=== PATIENT | male | born 1965 | race Caucasian/White ===

== ENCOUNTER 2017-03-05 13:19 | Inpatient (IN) | payer MEDICARE ==
[~2017-03-05] VITALS: Ht 175.3 cm; Wt 77.6 kg
[2017-03-05] MEDS ORDERED: NORCO (13:28)
[2017-03-05] MEDS ORDERED: SOMA (13:28)
[2017-03-05] MEDS ORDERED: LORAZEPAM 2 MG/1 ML VIAL IV ONE (13:30)
[2017-03-05] MEDS ORDERED: IV NORMAL SALINE 1000 ML BAG IV ONE (13:30)
[2017-03-05] MEDS ORDERED: LORAZEPAM 2 MG/1 ML VIAL ONE (13:40)
[2017-03-05 13:57] LABS: BASOPHILS % (AUTO) 0.2 % (0.0-2.0); EOSINOPHILS # (AUTO) 0.2 K/uL (0.0-0.7); EOSINOPHILS % (AUTO) 2.3 % (0.0-7.0); HEMATOCRIT 37.3 % (36.7-47.1); HEMOGLOBIN 12.6 g/dL (12.5-16.3); LYMPHOCYTES # (AUTO) 1.5 K/uL (20.0-40.0); LYMPHOCYTES % (AUTO) 19.4 % (20.5-51.5); MEAN CORPUSCULAR HEMOGLOBIN 28.7 uug (23.8-33.4); MEAN CORPUSCULAR HGB CONC 34 g/dL (32.5-36.3); MEAN CORPUSCULAR VOLUME 84.5 fL (73.0-96.2); MONOCYTES # (AUTO) 0.7 K/uL (2.0-10.0); MONOCYTES % (AUTO) 9.3 % (0.0-11.0); NEUTROPHILS # (AUTO) 5.6 K/uL (1.8-8.9); NEUTROPHILS % (AUTO) 68.8 % (38.5-71.5); PLATELET COUNT (AUTO) 286 K/uL (152-348); RED BLOOD CELL COUNT(AUTO) 4.41 MIL/uL (4.06-5.63); RED CELL DISTRIBUTION WIDTH 13.8 % (12.1-16.2)
[2017-03-05 14:22] LABS: MAGNESIUM 1.6 mg/dL (1.8-2.4)
[2017-03-05 14:23] LABS: ALANINE AMINOTRANSFERASE 23 U/L (16-63); ALBUMIN 3.9 g/dL (3.4-5.0); ALKALINE PHOSPHATASE 53 U/L (50-136); ASPARTATE AMINOTRANSFERASE 24 U/L (15-37); BILIRUBIN,DIRECT 0.1 mg/dL (0.0-0.2); BILIRUBIN,TOTAL 0.4 mg/dL (0.2-1.0); CARBON DIOXIDE 23 mmol/L (21-32); CHLORIDE 93 mmol/L (98-107); CREATININE 0.8 mg/dL (0.6-1.3); GFR 102 mL/min (>60); GLUCOSE 98 mg/dL (74-106); POTASSIUM 4.1 mmol/L (3.5-5.1); SODIUM SERUM 130 mmol/L (136-145); TOTAL PROTEIN, SERUM 7.7 g/dL (6.4-8.2); UREA NITROGEN, BLOOD 8 mg/dL (7-18)
[2017-03-05 14:26] LABS: ACETAMINOPHEN < 2.0 ug/mL (10-30)
[2017-03-05] MEDS ORDERED: MAGNESIUM SULFATE/D5W 100 ML IV SCH (14:45)
[2017-03-05] MEDS ORDERED: MAGNESIUM SULFATE/D5W 200 ML ONE (14:48)
[2017-03-05] MEDS ORDERED: HYDROCODONE/APAP 5-325MG TABLET PO PRN (15:00)
[2017-03-05] MEDS ORDERED: ACETAMINOPHEN 325 MG TABLET PO PRN (15:00)
[2017-03-05] MEDS ORDERED: MAGNESIUM HYDROXIDE 30 ML LIQUID UDC PO PRN (15:00)
[2017-03-05 15:06] LABS: ETHANOL 46 MG/DL (0-0)
[2017-03-05] MEDS ORDERED: HYDROMORPHONE 1 MG/1 ML DISP.SYRIN IV PRN (15:30)
[2017-03-05] MEDS ORDERED: CLONIDINE HCL 0.1 MG TABLET PO PRN (15:45)
[2017-03-05 16:34] VITALS: BP 151/106
[2017-03-05] MEDS: FOLIC ACID 1 MG TABLET PO SCH (16:39)
[2017-03-05] MEDS: THIAMINE HCL 100 MG TABLET PO SCH (16:39)
[2017-03-05] MEDS: AMLODIPINE 5 MG TABLET PO SCH (16:40)
[2017-03-05] MEDS: MULTIVITAMINS,THERAPEUTIC TABLET PO SCH (16:40)
[2017-03-05] MEDS: ONDANSETRON 4 MG/2 ML VIAL IV PRN (16:53)
[2017-03-05 18:40] LABS: CALCIUM 8.5 mg/dL (8.5-10.1); CREATININE 0.8 mg/dL (0.6-1.3); MAGNESIUM 2.2 mg/dL (1.8-2.4)
[2017-03-05 19:00] VITALS: BP 125/91
[2017-03-05] MEDS: IV NS 1000 ML 1,000 ML IV PRN (20:00)
[2017-03-05] MEDS: HYDROMORPHONE 1 MG/1 ML DISP.SYRIN IV PRN (20:45)
[2017-03-06] VITALS: BP 119/81
[2017-03-06] MEDS: HYDROMORPHONE 1 MG/1 ML DISP.SYRIN IV PRN ×6 (00:34→20:15)
[2017-03-06] MEDS: ONDANSETRON 4 MG/2 ML VIAL IV PRN ×3 (00:36→16:09)
[2017-03-06 04:00] VITALS: BP 118/86
[2017-03-06] MEDS: IV NS 1000 ML 1,000 ML IV PRN ×2 (04:16→19:35)
[2017-03-06] MEDS: LORAZEPAM 2 MG/1 ML VIAL IV PRN ×3 (06:28→17:27)
[2017-03-06 07:00] LABS: THYROID STIMULATING HORMONE 3.614 mIU/mL (0.358-3.740)
[2017-03-06 07:02] LABS: BASOPHILS % (AUTO) 0.3 % (0.0-2.0); EOSINOPHILS # (AUTO) 0.2 K/uL (0.0-0.7); EOSINOPHILS % (AUTO) 3.4 % (0.0-7.0); HEMATOCRIT 35.7 % (40-50); LYMPHOCYTES # (AUTO) 1.5 K/uL (20.0-40.0); MEAN CORPUSCULAR HGB CONC 34 g/dL (32.0-37.0); MEAN CORPUSCULAR VOLUME 86.5 FL (82.0-92.0); MONOCYTES # (AUTO) 0.7 K/uL (2.0-10.0); MONOCYTES % (AUTO) 9.8 % (0.0-11.0); NEUTROPHILS # (AUTO) 4.9 K/uL (1.8-8.9); NEUTROPHILS % (AUTO) 66.5 % (38.5-71.5); PLATELET COUNT (AUTO) 257 K/UL (150-450); RED BLOOD CELL COUNT(AUTO) 4.13 MIL/UL (4.7-6.1); WHITE BLOOD COUNT (AUTO) 7.3 K/UL (4.0-11.2)
[2017-03-06 07:09] LABS: ALBUMIN 3.6 g/dL (3.4-5.0); BILIRUBIN,TOTAL 0.3 mg/dL (0.2-1.0); CALCIUM 8.9 mg/dL (8.5-10.1); MAGNESIUM 1.9 mg/dL (1.8-2.4); PHOSPHOROUS 3.7 mg/dL (2.5-4.9); TOTAL PROTEIN, SERUM 7.2 g/dL (6.4-8.2)
[2017-03-06] MEDS: MULTIVITAMINS,THERAPEUTIC TABLET PO SCH (07:57)
[2017-03-06] MEDS: THIAMINE HCL 100 MG TABLET PO SCH (07:58)
[2017-03-06] MEDS: FOLIC ACID 1 MG TABLET PO SCH (07:58)
[2017-03-06] MEDS: AMLODIPINE 5 MG TABLET PO SCH (08:01)
[2017-03-06] MEDS ORDERED: PANTOPRAZOLE SODIUM 40 MG TABLET.DR PO SCH (09:00)
[2017-03-06 12:09] VITALS: BP 143/92
[2017-03-06 15:24] VITALS: BP 126/84
[2017-03-06 20:00] VITALS: BP 125/85
[2017-03-07] MEDS: ONDANSETRON 4 MG/2 ML VIAL IV PRN ×3 (00:13→16:27)
[2017-03-07] MEDS: HYDROMORPHONE 1 MG/1 ML DISP.SYRIN IV PRN ×6 (00:14→20:40)
[2017-03-07] MEDS: LORAZEPAM 2 MG/1 ML VIAL IV PRN ×4 (01:14→21:28)
[2017-03-07 06:08] VITALS: BP 131/85
[2017-03-07] MEDS: PANTOPRAZOLE SODIUM 40 MG TABLET.DR PO SCH ×2 (06:34→07:50)
[2017-03-07 07:06] LABS: BASOPHILS % (AUTO) 0.4 % (0.0-2.0); EOSINOPHILS # (AUTO) 0.5 K/uL (0.0-0.7); EOSINOPHILS % (AUTO) 7.6 % (0.0-7.0); HEMATOCRIT 34.3 % (40-50); HEMOGLOBIN 11.5 G/DL (14.0-18.0); LYMPHOCYTES # (AUTO) 1.3 K/uL (20.0-40.0); LYMPHOCYTES % (AUTO) 20.8 % (20.5-51.5); MEAN CORPUSCULAR HEMOGLOBIN 29.1 UUG (27.0-31.0); MEAN CORPUSCULAR HGB CONC 34 g/dL (32.0-37.0); MEAN CORPUSCULAR VOLUME 86.5 FL (82.0-92.0); MONOCYTES # (AUTO) 0.8 K/uL (2.0-10.0); MONOCYTES % (AUTO) 13.2 % (0.0-11.0); NEUTROPHILS # (AUTO) 3.8 K/uL (1.8-8.9); PLATELET COUNT (AUTO) 210 K/UL (150-450); RED BLOOD CELL COUNT(AUTO) 3.97 MIL/UL (4.7-6.1); RED CELL DISTRIBUTION WIDTH 14.4 % (11.5-14.5); WHITE BLOOD COUNT (AUTO) 6.4 K/UL (4.0-11.2)
[2017-03-07 07:21] LABS: ALBUMIN 3.4 g/dL (3.4-5.0); BILIRUBIN,TOTAL 0.2 mg/dL (0.2-1.0); CALCIUM 9.2 mg/dL (8.5-10.1); MAGNESIUM 1.7 mg/dL (1.8-2.4); PHOSPHOROUS 4.3 mg/dL (2.5-4.9); POTASSIUM 4.2 mmol/L (3.5-5.1)
[2017-03-07 07:46] VITALS: BP 133/88
[2017-03-07] MEDS: THIAMINE HCL 100 MG TABLET PO SCH (08:26)
[2017-03-07] MEDS: MULTIVITAMINS,THERAPEUTIC TABLET PO SCH (08:26)
[2017-03-07] MEDS: FOLIC ACID 1 MG TABLET PO SCH (08:26)
[2017-03-07] MEDS: AMLODIPINE 5 MG TABLET PO SCH (08:26)
[2017-03-07] MEDS: IV NS 1000 ML 1,000 ML IV PRN ×2 (08:28→22:10)
[2017-03-07] MEDS ORDERED: MAGNESIUM SULFATE/D5W 100 ML IV SCH (09:45)
[2017-03-07 10:59] LABS: *BILIRUBIN,URIN NEGATIVE (NEGATIVE); *BLOOD, URINE NEGATIVE (NEGATIVE); *CLARITY,URINE CLEAR (CLEAR); *COLOR,URINE YELLOW (YELLOW); *KETONES,URINE NEGATIVE (NEGATIVE); *PROTEIN,URINE NEGATIVE (NEGATIVE); *UROBILINOGEN,URINE 0.2 E.U./dl (NORMAL); LEUKOCYTE ESTERASE ,URINE NEGATIVE (NEGATIVE); NITRITE, URINE NEGATIVE (NEGATIVE); PH,URINE 6.5 (5.0-8.0); UGLUCOSE NEGATIVE (NEGATIVE)
[2017-03-07 11:07] LABS: BACTERIA,URINE FEW /HPF (NONE SEEN); RBC,URINE 0-3 /HPF (0-3); SQUAMOUS EPITHELIAL CELL,UR NONE SEEN /HPF (NONE SEEN); WBC,URINE 0-3 /HPF (0-3)
[2017-03-07 11:49] VITALS: BP 138/94
[2017-03-07 15:54] VITALS: BP 136/92
[2017-03-07 20:17] VITALS: BP 138/92
[2017-03-08] MEDS: ONDANSETRON 4 MG/2 ML VIAL IV PRN ×2 (00:30→09:11)
[2017-03-08] MEDS: HYDROMORPHONE 1 MG/1 ML DISP.SYRIN IV PRN ×4 (00:40→13:00)
[2017-03-08] MEDS: LORAZEPAM 2 MG/1 ML VIAL IV PRN ×2 (04:01→10:05)
[2017-03-08 05:00] VITALS: BP 124/89
[2017-03-08] MEDS: PANTOPRAZOLE SODIUM 40 MG TABLET.DR PO SCH (06:13)
[2017-03-08 06:56] LABS: BASOPHILS % (AUTO) 0.6 % (0.0-2.0); EOSINOPHILS # (AUTO) 0.5 K/uL (0.0-0.7); EOSINOPHILS % (AUTO) 7.8 % (0.0-7.0); HEMATOCRIT 34.9 % (40-50); LYMPHOCYTES # (AUTO) 1.2 K/uL (20.0-40.0); LYMPHOCYTES % (AUTO) 18.1 % (20.5-51.5); MEAN CORPUSCULAR HEMOGLOBIN 29.8 UUG (27.0-31.0); MEAN CORPUSCULAR HGB CONC 34 g/dL (32.0-37.0); MEAN CORPUSCULAR VOLUME 86.7 FL (82.0-92.0); MONOCYTES # (AUTO) 0.8 K/uL (2.0-10.0); MONOCYTES % (AUTO) 12.3 % (0.0-11.0); NEUTROPHILS # (AUTO) 4.4 K/uL (1.8-8.9); NEUTROPHILS % (AUTO) 61.2 % (38.5-71.5); PLATELET COUNT (AUTO) 208 K/UL (150-450); RED BLOOD CELL COUNT(AUTO) 4.03 MIL/UL (4.7-6.1); RED CELL DISTRIBUTION WIDTH 14.1 % (11.5-14.5); WHITE BLOOD COUNT (AUTO) 6.9 K/UL (4.0-11.2)
[2017-03-08 07:16] LABS: ALBUMIN 3.6 g/dL (3.4-5.0); BILIRUBIN,TOTAL 0.2 mg/dL (0.2-1.0); CALCIUM 9.4 mg/dL (8.5-10.1); CREATININE 1.1 mg/dL (0.6-1.3); MAGNESIUM 1.9 mg/dL (1.8-2.4); PHOSPHOROUS 4.9 mg/dL (2.5-4.9); POTASSIUM 4.9 mmol/L (3.5-5.1); TOTAL PROTEIN, SERUM 7.3 g/dL (6.4-8.2)
[2017-03-08] MEDS: MULTIVITAMINS,THERAPEUTIC TABLET PO SCH (09:01)
[2017-03-08] MEDS: THIAMINE HCL 100 MG TABLET PO SCH (09:01)
[2017-03-08] MEDS: FOLIC ACID 1 MG TABLET PO SCH (09:02)
[2017-03-08] MEDS: AMLODIPINE 5 MG TABLET PO SCH (09:02)
[2017-03-08 09:07] LABS: *AMPHETAMINE, URINE NEGATIVE (NEGATIVE); *BARBITURATE, URINE NEGATIVE (NEGATIVE); *CANNABINOID, URINE NEGATIVE (NEGATIVE); *COCCAINE, URINE NEGATIVE (NEGATIVE); *OPIATE, URINE POSITIVE (NEGATIVE); *PHENCYCLIDINE SCREEN,URINE NEGATIVE (NEGATIVE)
[2017-03-08] MEDS: IV NS 1000 ML 1,000 ML IV PRN (09:16)
[2017-03-08 11:05] VITALS: BP 122/84
[2017-03-08] MEDS ORDERED: ONDANSETRON HCL 4 MG TABLET PO PRN (13:00)
[2017-03-08] MEDS ORDERED: HYDROCODONE/APAP 10-325 MG TABLET PO PRN (13:00)
[2017-03-08] MEDS ORDERED: LORAZEPAM 1 MG TABLET PO PRN (13:00)
[2017-03-08] MEDS ORDERED: MULT-24 PO (13:13)
[2017-03-08] MEDS ORDERED: Folic Acid PO (13:13)
[2017-03-08] MEDS ORDERED: LORA-259 PO (13:13)
[2017-03-08] MEDS ORDERED: ONDA4TAB5 PO (13:13)
[2017-03-08] MEDS ORDERED: AMLO5TAB2 PO (13:13)
[2017-03-08] MEDS ORDERED: THIA100T13 PO (13:13)
[2017-03-08] MEDS ORDERED: HYDR-548 PO (13:13)
== END 2017-03-08 14:00 | disposition home or self-care (01) | DRG 897 ==
LOC: ER 13:19 → TELE 16:02 → MED 03-06 19:59
PROVIDERS: ADMIT Nurse Practitioner Acute Care; ATTEND Nurse Practitioner Acute Care
DX: F10.239 Alcohol dependence with withdrawal, unspecified (principal); E87.1 Hypo-osmolality and hyponatremia; N13.30 Unspecified hydronephrosis; F11.20 Opioid dependence, uncomplicated; E86.0 Dehydration; E83.42 Hypomagnesemia; I10 Essential (primary) hypertension; G93.89 Other specified disorders of brain; K42.9 Umbilical hernia without obstruction or gangrene; G89.29 Other chronic pain; Z88.5 Allergy status to narcotic agent; Z91.048 Other nonmedicinal substance allergy status; M51.26 Other intervertebral disc displacement, lumbar region; I49.9 Cardiac arrhythmia, unspecified; G25.3 Myoclonus; N28.1 Cyst of kidney, acquired; M80.0 Age-related osteoporosis with current pathological fracture; D64.9 Anemia, unspecified; Z87.442 Personal history of urinary calculi
CPT/HCPCS: 36415; 70030-TC; 70450; 71010; 76700; 80307; 83735; 84100; 84443; 85025; 85730; 87086; 93005; 97001; 97116; 97530; A4663; G0480-TC; G6040-TC; J1170; J2060; J2405; J3475; J7030